=== PATIENT | female | born 1980 | race Caucasian/White ===

== ENCOUNTER 2017-02-11 22:30 | Emergency (ER) | payer BC ==
[~2017-02-11] VITALS: Ht 162.6 cm; Wt 54.4 kg
--- NOTE | 2017-02-11 22:30 | NUR ---
PT BIB RA WITH A C/O SYNCOPE AT THE [facility]. PT IS VISITING FROM ANOTHER STATE AND IS 7 WEEKS . PT IS IN ROOM #3 AND BEING TRIAGED. PT IS ON THE MONITOR AND CONTINUOUS PULSE OX. PT IS HYPOTENSIVE. 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
--- NOTE | 2017-02-11 22:30 | NUR ---
PT'S IS AT THE BEDSIDE. PT APPARENTLY WAS STANDING IN LINE AT [facility] AND SYCOPIZED. PT FELL ON HER BOTTOM AND THEN FELL BACK. PT IS C/O LEFT ELBOW PAIN AND TAILBONE PAIN. DR. MELLO IS AT THE BEDSIDE.
[2017-02-11] MEDS ORDERED: IV SET PRIMARY 1 EA INFUS.SET MC ONE ×2 (22:38→22:45)
[2017-02-11] MEDS ORDERED: IV NS 0.9% 1,000 ML ONE ×3 (22:38→23:50)
[2017-02-11] MEDS ORDERED: ONDANSETRON HCL/PF 4 MG/2 ML VIAL ONE (22:56)
[2017-02-11 22:58] LABS: BASOPHILS # (AUTO) 0.1 /CMM (0.0-0.2); BASOPHILS % (AUTO) 0.7 % (0.0-2.0); EOSINOPHILS # (AUTO) 0.1 /CMM (0.0-0.7); EOSINOPHILS % (AUTO) 0.5 % (0.0-6.0); HEMATOCRIT 31 % (33-45); HEMOGLOBIN 10.4 g/dL (11.5-14.8); LYMPHOCYTES # (AUTO) 3.6 /CMM (0.8-4.8); LYMPHOCYTES % (AUTO) 31.9 % (20.0-44.0); MEAN CORPUSCULAR HEMOGLOBIN 28 PG (26.0-33.0); MEAN CORPUSCULAR HGB CONC 34 g/dl (31.0-36.0); MEAN CORPUSCULAR VOLUME 84 fL (82-100); MONOCYTES # (AUTO) 0.6 /CMM (0.1-1.30); MONOCYTES % (AUTO) 5.4 % (2.0-12.0); NEUTROPHILS % (AUTO) 61.5 % (43.0-81.0); PLATELET COUNT (AUTO) 265 /CMM (150-450); RED BLOOD CELL COUNT(AUTO) 3.67 MIL/uL (4.0-5.2); WHITE BLOOD COUNT (AUTO) 11.3 K/uL (4.3-11.0)
[2017-02-11] MEDS ORDERED: IV NS 0.9% 1,000 ML BAG IV ONE ×2 (23:00)
[2017-02-11] MEDS ORDERED: ONDANSETRON HCL/PF 4 MG/2 ML VIAL IV ONE (23:00)
[2017-02-11 23:08] LABS: CALCIUM, SERUM 8.1 mg/dL (8.5-10.1); CREATININE 0.6 mg/dL (0.6-1.3); POTASSIUM 3.9 mmol/L (3.5-5.1)
[2017-02-11 23:13] LABS: ALBUMIN 3.3 g/dL (3.4-5.0); BILIRUBIN,TOTAL 0.2 mg/dL (0.2-1.0); INR 0.9 (0.87-1.13); PROTHROMBIN TIME 9.6 SECS (9.5-12.7); TOTAL PROTEIN, SERUM 6.5 g/dL (6.4-8.2)
--- NOTE | 2017-02-11 23:35 | NUR ---
PT C/O FEELING DAMP SHEETS UNDER HER. BED LINENS WERE CHANGED AND PT REC'D WARM BLANKETS. PT STATED THAT SHE FELT BETTER. PT IS STILL C/O TAILBONE PAIN.
[2017-02-12] MEDS ORDERED: IV NS 0.9% 1,000 ML ONE (00:26)
[2017-02-12] MEDS ORDERED: IV NS 0.9% 1,000 ML BAG IV ONE (00:30)
--- NOTE | 2017-02-12 01:15 | NUR ---
PT USED A BED BEASLEY. APPROX 600 ML YELLOW URINE OUTPUT NOTED. SAMPLE OBTAINED AND SENT TO LAB.
[2017-02-12 01:30] LABS: BILIRUBIN,URINE NEGATIVE (NEGATIVE); BLOOD, URINE NEGATIVE Ery/uL (NEGATIVE); COLOR,URINE YELLOW (YELLOW); KETONES,URINE NEGATIVE (NEGATIVE); LEUKOCYTE ESTERASE ,URINE NEGATIVE (NEGATIVE); NITRITE, URINE NEGATIVE (NEGATIVE); PH,URINE 6.5 (5.0-8.0); PROTEIN,URINE NEGATIVE (NEGATIVE); UGLUCOSE NEGATIVE (NEGATIVE); UROBILINOGEN,URINE 0.2 EU/dL (0.2)
[2017-02-12 01:31] LABS: APPEARANCE,URINE CLEAR (CLEAR)
--- NOTE | 2017-02-12 02:00 | NUR ---
IV removed. Catheter intact and site benign. Pressure and 4x4 applied to site. No bleeding noted.
--- NOTE | 2017-02-12 02:25 | NUR ---
Patient discharged to home in stable condition. Written and verbal after care instructions given. Patient verbalizes understanding of instruction AND RX. PT AMBULATED OUT WITH A STEADY GAIT. PT'S IS DRIVING PT HOME. VSS
[2017-02-12 02:28] VITALS: BP 91/50
== END 2017-02-12 02:25 | disposition home or self-care (01) ==
LOC: ER 22:33
DX: O99.281 Endocrine, nutritional and metabolic diseases complicating pregnancy, first trimester (principal); E86.0 Dehydration; R55 Syncope and collapse; Z3A.01 Less than 8 weeks gestation of pregnancy
CPT/HCPCS: 36415; 80048; 80076; 81001; 82962; 84702; 85025; 85730; 86850; 93005; 96361; 96374; 99285; A4606; J2405; J7030 ×3; Z7610; 81000-TC